=== PATIENT | female | born 1955 | race Caucasian/White ===

== ENCOUNTER 2017-08-10 12:15 | Day surgery (SDC) | payer BC ==
[~2017-08-10] VITALS: Ht 165.1 cm; Wt 57.4 kg
[~2017-08-10 12:15] MED LIST: HYDR1TAB94 PO; LORA1 PO; LORA10ER PO; MECL25 PO; MONT10T PO; PROM25 PO; RXLORA1 PO
[2017-08-10] MEDS ORDERED: ALEN70 (12:44)
== END 2017-08-10 14:04 | disposition home or self-care (01) ==
LOC: ORSCSDS 12:15
PROVIDERS: Surgery
PROC: 0DJD8ZZ Inspection of Lower Intestinal Tract, Via Natural or Artificial Opening Endoscopic (ICD-10-PCS; principal; 2017-08-10 13:30)
DX: Z12.11 Encounter for screening for malignant neoplasm of colon (principal); K21.9 Gastro-esophageal reflux disease without esophagitis; Z79.899 Other long term (current) drug therapy
CPT/HCPCS: J0330; J1980; J2405; J7120

== ENCOUNTER → 2019-08-04 | Outpatient (CLI) | payer BC ==
[~2019-08-04] MED LIST changes: +ALEN70
[2019-08-05 15:10] LABS: HPV 16 Negative (Negative); HPV 18 Negative (Negative); HPV OTHER HR TYPES Negative (Negative)
== END | disposition home or self-care (01) ==
LOC: LAB SHORT 14:08 → LAB 14:08
PROVIDERS: Obstetrics & Gynecology
DX: Z12.4 Encounter for screening for malignant neoplasm of cervix (principal)
CPT/HCPCS: 87624; G0123